=== PATIENT | male | born 1980 | race Caucasian/White ===

== ENCOUNTER 2024-09-30 09:27 | Emergency (ER) | payer OTHER, SELFPAY ==
[2024-09-30 09:47] VITALS: BP 133/84; PULSE 94; RESP 19; TEMP 36.8; O2SAT 96; BMI 27.0
--- NOTE | 2024-09-30 09:55 | PC.NURSE ---
PT COMING IN FROM THE ED LOBBY WITH C/O N/V & EPIGASTRIC PAIN X1 DAY; PER PT, I'VE BEEN VOMITING SINCE SUNDAY; IT STARTED WHEN I STARTED TAKING OZEMPIC FOR MY DIABETES AND THEY INCREASED MY DOSE; I HAVEN'T BEEN ABLE TO KEEP ANYTHING DOWN SINCE YESTERDAY. PT REPORTS HAVING HX OF DM, HYPERTENSION, KIDNEY STONES, AND CARDIAC DYSRHYTMIAS (PT UNABLE TO STATE WHAT). PT CONNECTED TO MONITORS AT THIS TIME.
[2024-09-30 09:57] VITALS: BP 130/89; PULSE 96; RESP 18; TEMP 36.8; O2SAT 99
[2024-09-30] MEDS: ONDANSETRON INJ 2 MG/ML INJ 2 ML 4 MG IV (10:32)
[2024-09-30] MEDS: SODIUM CHLORIDE 0.9% 1000 ML 1,000 ML 999 ML IV (11:01)
[2024-09-30] MEDS: LIDOCAINE VISCOUS 2% 15 ML UDC PO (11:09)
[2024-09-30] MEDS: MG HYD/AL HYD/SIME (Maalox Reg) SUSP 30 ML UDC PO (11:09)
[2024-09-30] MEDS: FAMOTIDINE INJ 10 MG/ML VIAL 2 ML 40 MG IVP (11:10)
--- NOTE | 2024-09-30 11:17 | EDNOTE_ITS ---
ED General RME/HPI General Chief complaint: Nausea/Vomiting/Diarrhea Stated complaint: Vomiting since Sunday Time Seen by Provider: 09/30/24 10:41 Arrival date/time: 09/30/24 09:27 RME / HPI RME / HPI narrative: 44-year-old male with a history of [id number] diabetes on Ozempic who presents with worsening of his chronic morning nausea since starting Ozempic. He notes typically he will have 1 or 2 emesis episodes in the morning once or twice a week with Ozempic, however since yesterday he has had nonstop emesis, increasing acid taste in the back of his throat. He denies diarrhea constipation. He notes mild pain under his sternal area. He has been on Ozempic for over 4 months. Related Data Home Medications ?Medication ?Instructions ?Recorded ?Confirmed tamsulosin 0.4 mg capsule (Flomax) 0.4 mg PO QDAY PRN kidney stones 03/21/21 03/21/21 Previous Rx's ?Medication ?Instructions ?Recorded hydrocodone 5 mg-acetaminophen 325 1 tab PO Q6H PRN pain #10 tabs 03/21/21 mg tablet ondansetron 4 mg disintegrating 4 mg PO Q8H PRN nausea and 09/30/24 tablet vomiting #14 tabs pantoprazole 40 mg tablet,delayed 40 mg PO QDAY #14 tabs 09/30/24 release (Protonix) Allergies Allergy/AdvReac Type Severity Reaction Status Date / Time allopurinol Allergy Severe HIVES Verified 07/14/24 16:55 febuxostat Allergy Severe HIVES Verified 07/14/24 16:55 ketorolac Allergy Intermediate HIVES Verified 07/14/24 16:55 NSAIDS (Non-Steroidal AdvReac Intermediate BARRETTS Verified 07/14/24 16:55 Anti-Inflamma ESPOPHAGUS Review of Systems Review of Systems Systems Reviewed: All systems reviewed, normal except as documented ED Exam Narrative Physical exam: GENERAL APPEARANCE: AxOx4, generally well-appearing, no acute distress. HEENT: NC, AT. MMM. EOMI, clear conjunctiva, oropharynx clear. NECK: Supple without lymphadenopathy. No stiffness or restricted ROM. HEART: Normal rate and regular rhythm, normal S1/S1, no m/r/g LUNGS: CTAB, moving air well. No crackles or wheezes are heard. ABDOMEN: Soft, nontender, nondistended with good bowel sounds heard. BACK: No midline C/T/L spine pain or deformity, No CVAT, no obvious deformity. EXTREMITIES: Without cyanosis, clubbing or edema. MUSCULOSKELETAL: FROM of all major joints, no chest tenderness NEUROLOGICAL: Grossly nonfocal. Alert and oriented, moving all 4 extremities. CN not formally tested but appear grossly intact. Observed to ambulate with normal gait. Skin: Warm and dry without any rash. Course Quality Measures none Orders Category Date Time Status CBC Stat Lab 09/30/24 11:05 Completed CMP [Comprehensive Metabolic Panel] Stat Lab 09/30/24 11:05 Completed Lipase Stat Lab 09/30/24 11:05 Completed Famotidine Inj [Pepcid Inj] Med 09/30/24 10:50 Discontinued 40 mg IVP X1 ONE Lidocaine 2% Viscous [Xylocaine 2% Viscous] Med 09/30/24 10:50 Discontinued 15 ml PO X1 ONE Ondansetron Inj [Zofran Inj] Med 09/30/24 10:27 Discontinued 4 mg IV X1 ONE Sodium Chloride 0.9% 1000 ml [Ns] 1,000 ml Med 09/30/24 10:50 Discontinued IV 999 mls/hr Sodium Chloride 0.9% 1000 ml [Ns] 1,000 ml Med 09/30/24 11:00 Discontinued IV 999 mls/hr mg Hyd/Al Hyd/Chuck Susp [Maalox Susp] Med 09/30/24 10:50 Discontinued 30 ml PO X1 ONE Vital Signs Vital signs: Vital Signs Temperature 98.3 F 09/30/24 09:47 Pulse Rate 94 09/30/24 09:47 Respiratory Rate 19 09/30/24 09:47 Blood Pressure 133/84 H 09/30/24 09:47 Pulse Oximetry (%) 96 09/30/24 09:47 Oxygen Delivery Method Room Air 09/30/24 09:47 SpO2 96% on room air, patient is not hypoxic MDM Patient data External records reviewed:: [facility] previous records Clinical information provided by:: patient Social determinants that could affect healthcare access:: none Patient has the following chronic illnesses:: Zbw-tianzak-lnueyyxpp diabetes, GERD, Schafer's esophagus, ureterolithiasis How is presenting disease/condition affected by chronic disease/condition?: e xacerbated by Evaluation data The following diagnostics were reviewed and interpreted by me:: lab results Lab and/or radiology exams considered but not ordered:: None Interpretation Summary: As per narrative Medications Medications considered but not ordered:: None Medication administrations:: Medication Administration History Discontinued Medications Al Hydrox/Mg Hydrox/Simethicone (Mg Hyd/Al Hyd/Chuck (Maalox Reg) Susp 30 Ml Udc) 30 ml PO X1 ONE Stop: 09/30/24 10:51 Last Admin: 09/30/24 11:09 Dose: 30 ml Documented By: Famotidine (Famotidine Inj 10 Mg/Ml Vial 2 Ml) 40 mg IVP X1 ONE Stop: 09/30/24 10:51 Last Admin: 09/30/24 11:10 Dose: 40 mg Documented By: Sodium Chloride (Ns) 1,000 mls @ 999 mls/hr IV .Q1H1M ONE Stop: 09/30/24 12:00 Last Infusion: 09/30/24 12:41 Dose: Infused Documented By: Admin: 09/30/24 11:01 Dose: 999 mls/hr Documented By: Sodium Chloride (Ns) 1,000 mls @ 999 mls/hr IV .Q1H1M ONE Stop: 09/30/24 11:50 Last Admin: 09/30/24 11:04 Dose: Not Given Documented By: Non-Admin Reason: Duplicate Medication on eMAR Lidocaine HCl (Lidocaine Viscous 2% 15 Ml Udc) 15 ml PO X1 ONE Stop: 09/30/24 10:51 Last Admin: 09/30/24 11:09 Dose: 15 ml Documented By: Ondansetron HCl (Ondansetron Inj 2 Mg/Ml Inj 2 Ml) 4 mg IV X1 ONE; Protocol Stop: 09/30/24 10:28 Last Admin: 09/30/24 10:32 Dose: 4 mg Documented By: Above Consultations Consultation(s) initiated? (list below): No Diagnosis Differential Diagnosis ED Complaint MDM: Gastritis, peptic ulcer disease, gastroesophageal reflux, pancreatitis Most likely diagnosis given after review of the tests above:: See below Admission Indicated Admission indicated?: not indicated Explain why admission is indicated or not indicated:: As per narrative Admission Request Was there a request for admission?: No Disposition Plan Disposition Plan: Discharge Discharge Attestation Discharge Attestation: The patient and all family members were given an opportunity to ask questions and understood the discharge instructions. Discharge instructions specifically effects, indications for sooner follow up or return to the emergency department, and the expected course of current diagnosis. Patient condition: Stable Medical Decision Making MDM Narrative MDM Narrative: Mr. Cunningham is otherwise pleasant, well-appearing gentleman who has had increasing episodes of morning nausea and vomiting since starting Ozempic. On my exam he has not had any vomiting here in the emergency department he just seems relatively tired or fatigued, nontoxic-appearing. He was hydrated here in the emergency department and giving antiemetics with good effect. He is able to tolerate p.o. fluids well. laboratory testing shows no significant dehydration, electrolyte abnormalities, kidney dysfunction or pancreatitis. He feels he was able to success with Ozempic and both blood sugar control and weight loss. He is in the process of getting his Schafer's esophagus assess to see whether that this has anything to do with his current symptoms as well. He will continue his Ozempic until he has followed up with GI for his Schafer's esophagus. Differential Diagnosis Differential Diagnosis: Gastritis, peptic ulcer disease, gastroesophageal reflux, pancreatitis Lab Data 09/30/24 11:05 09/30/24 11:05 Labs: Lab Results 09/30/24 Range/Units 11:05 WBC 11.7 H (3.8-10.6) Thou/mm3 RBC 5.61 (4.50-5.90) Miln/mm3 Hgb 16.5 H (13.5-16.0) g/dL Hct 46.5 (41.0-53.0) % MCV 83 (80-100) fL MCH 29.4 (25.0-35.0) pg MCHC 35.5 (31.0-37.0) g/dl RDW Std Deviation 35.4 (35.1-43.9) fL Plt Count 398 (140-440) Thou/mm3 Neut % (Auto) 76 (37-80) % Lymph % (Auto) 16 (10-50) % Bowman % (Auto) 8 (0-12) % Eos % (Auto) 0 (0-10) % Baso % (Auto) 0 (0-2.5) % Neut # (Auto) 8.8 H (1.8-7.7) Thou/mm3 Lymph # (Auto) 1.8 (1.0-4.8) Thou/mm3 Bowman # (Auto) 1.0 H (0.0-0.8) Thou/mm3 Eos # (Auto) 0.0 (0.0-0.5) Thou/mm3 Baso # (Auto) 0.0 (0.0-0.2) Thou/mm3 Immature Gran # (Auto) 0.04 H (0.00-0.00) Thou/mm3 Absolute Nucleated RBC 0.00 (0.00-0.00) Thou/mm3 Immature Gran % 0 (0-0) % Nucleated RBC % 0 (0) /100 WBC Sodium 136 (136-145) mMol/L Potassium 3.4 (3.4-5.1) mMol/L Chloride 93 L (98-107) mMol/L Carbon Dioxide 30.3 (20.0-31.0) mMol/L Anion Gap 13 (7-16) BUN 21 (9-23) mg/dL Creatinine 1.2 (0.6-1.3) mg/dL Estim Creat Clear Calc 81.9 (>60) mL/min eGFR > 60 (60 - ) See Note BUN/Creatinine Ratio 18 (12-20) Ratio Glucose 263 H (74-106) mg/dL Calculated Osmolality 283 (275-295) Calcium 10.5 (8.3-10.6) mg/dL Corrected Calcium 10.5 H (8.5-10.1) mg/dL Total Bilirubin 1.5 H (0.3-1.2) mg/dL AST 14 (0-34) U/L ALT 18 (10-49) U/L Alkaline Phosphatase 68 (46-116) U/L Total Protein 8.1 (5.7-8.2) gm/dL Albumin 5.8 H (3.5-5.0) gm/dL Globulin 2.3 (2.3-3.5) gm/dL Albumin/Globulin Ratio 2.5 H (1.2-2.2) Lipase 31 (12-53) U/L Discharge Plan Plan Patient Disposition: HOME (Self Care) Prescriptions/Referrals Prescriptions/Med Rec: New ondansetron 4 mg tablet,disintegrating 4 mg PO Q8H PRN (Reason: nausea and vomiting) Qty: 14 0RF pantoprazole [Protonix] 40 mg tablet,delayed release (DR/EC) 40 mg PO QDAY Qty: 14 0RF No Action tamsulosin [Flomax] 0.4 mg Capsule 0.4 mg PO QDAY PRN (Reason: kidney stones) hydrocodone-acetaminophen 5-325 mg tablet 1 tab PO Q6H MDD 4 PRN (Reason: pain) Qty: 10 0RF Referrals: Susi Couch PA-C [Primary Care Provider] - In 1 week Problem List Clinical Impression: Gastritis, Nausea & vomiting Patient/Caregiver Discharge Instructions Education Materials: ED Diet for Vomiting or ..., ED PEPTIC ULCER vs GASTRITIS Additional Instructions: Follow-up with your primary care doctor for possible referral to the GI specialist for endoscopy/assessment of your previous history of Schafer's esophagus. You can return to the emergency department sooner symptoms worsen or if you notice any new, concerning issues. Print Language: Malagasy Stand Alone Forms: Alanna Award Info., Patient Portal Info Letter
[2024-09-30 11:25] LABS: Basophils % (Auto) 0 % (0-2.5); Eosinophils % (Auto) 0 % (0-10); Hematocrit 46.5 % (41.0-53.0); Hemoglobin 16.5 g/dL (13.5-16.0); Immature Granulocytes % (Auto) 0 % (0-0); Immature Granulocytes Auto 0.04 Thou/mm3 (0.00-0.00); Lymphocytes # (Auto) 1.8 Thou/mm3 (1.0-4.8); Lymphocytes % (Auto) 16 % (10-50); Mean Corpuscular HGB Conc 35.5 g/dl (31.0-37.0); Mean Corpuscular Hemoglobin 29.4 pg (25.0-35.0); Mean Corpuscular Volume 83 fL (80-100); Monocytes % (Auto) 8 % (0-12); Neutrophils # (Auto) 8.8 Thou/mm3 (1.8-7.7); Neutrophils % (Auto) 76 % (37-80); Nucleated Red Blood Cell % 0 /100 WBC (0); Platelet Count 398 Thou/mm3 (140-440); RDW Standard Deviation 35.4 fL (35.1-43.9); Red Blood Count 5.61 Miln/mm3 (4.50-5.90); White Blood Count 11.7 Thou/mm3 (3.8-10.6)
[2024-09-30 11:42] LABS: Alanine Aminotransferase 18 U/L (10-49); Albumin, Serum 5.8 gm/dL (3.5-5.0); Albumin/Globulin Ratio 2.5 (1.2-2.2); Alkaline Phosphatase 68 U/L (46-116); Anion Gap 13 (7-16); Aspartate Amino Transferase 14 U/L (0-34); BUN/Creatinine Ratio 18 Ratio (12-20); Bilirubin,Total 1.5 mg/dL (0.3-1.2); Blood Urea Nitrogen 21 mg/dL (9-23); Calcium 10.5 mg/dL (8.3-10.6); Calcium (Corrected) 10.5 mg/dL (8.5-10.1); Carbon Dioxide 30.3 mMol/L (20.0-31.0); Chloride 93 mMol/L (98-107); Creatinine (Component) 1.2 mg/dL (0.6-1.3); Estimated Creatinine Clearance 81.9 mL/min (>60); Globulin 2.3 gm/dL (2.3-3.5); Glucose 263 mg/dL (74-106); Lipase 31 U/L (12-53); Osmolality,Calculated 283 (275-295); Potassium 3.4 mMol/L (3.4-5.1); Sodium 136 mMol/L (136-145); Total Protein 8.1 gm/dL (5.7-8.2); eGFR > 60 See Note
[2024-09-30 12:00] VITALS: BP 125/67; PULSE 83; RESP 15; TEMP 36.9; O2SAT 97
[2024-09-30 13:17] VITALS: BP 153/92; PULSE 87; RESP 14; TEMP 37.2; O2SAT 98
== END 2024-09-30 13:28 | disposition home or self-care (01) ==
PROVIDERS: Emergency Provider Emergency Medicine; PCP Physician Assistant
DX: K29.70 Gastritis, unspecified, without bleeding (principal); E11.9 Type 2 diabetes mellitus without complications
CPT/HCPCS: 36415; 80053; 83690; 85025; 96361; 96374; 96375; 99284; J2405; J3490; J7030; A9270

== ENCOUNTER 2024-11-19 12:09 | Emergency (ER) | payer OTHER, SELFPAY ==
[2024-11-19 12:30] VITALS: BP 160/69; PULSE 80; RESP 18; TEMP 37.1; O2SAT 100; BMI 27.8
[2024-11-19 12:53] LABS: Basophils % (Auto) 0 % (0-2.5); Eosinophils % (Auto) 0 % (0-10); Hematocrit 42.7 % (41.0-53.0); Immature Granulocytes % (Auto) 0 % (0-0); Immature Granulocytes Auto 0.03 Thou/mm3 (0.00-0.00); Lymphocytes # (Auto) 1.5 Thou/mm3 (1.0-4.8); Lymphocytes % (Auto) 12 % (10-50); Mean Corpuscular HGB Conc 35.1 g/dl (31.0-37.0); Mean Corpuscular Volume 82 fL (80-100); Monocytes # (Auto) 0.4 Thou/mm3 (0.0-0.8); Monocytes % (Auto) 3 % (0-12); Neutrophils # (Auto) 10.5 Thou/mm3 (1.8-7.7); Neutrophils % (Auto) 84 % (37-80); Nucleated Red Blood Cell % 0 /100 WBC (0); Platelet Count 327 Thou/mm3 (140-440); RDW Standard Deviation 35.6 fL (35.1-43.9); Red Blood Count 5.18 Miln/mm3 (4.50-5.90); White Blood Count 12.4 Thou/mm3 (3.8-10.6)
[2024-11-19] MEDS: LORazepam 2 MG/ML VIAL 1 MG IM (12:54)
[2024-11-19] MEDS: METOCLOPRAMIDE INJ 5 MG/ML VIAL 2 ML 10 MG IM (12:54)
--- NOTE | 2024-11-19 13:23 | PD.EDRME ---
Rapid Medical Screening Exam RME Arrival date/time: 11/19/24 12:09 44-year-old male presents to the emergency department he was of nausea vomiting abdominal pain which he attributes to the Ozempic Chief Complaint: Nausea/Vomiting/Diarrhea Vital signs: Vital Signs Temperature 98.7 F 11/19/24 12:30 Pulse Rate 80 11/19/24 12:30 Respiratory Rate 18 11/19/24 12:30 Blood Pressure 160/69 H 11/19/24 12:30 Pulse Oximetry (%) 100 11/19/24 12:30 Oxygen Delivery Method Room Air 11/19/24 12:30
[2024-11-19 13:26] LABS: Alanine Aminotransferase 21 U/L (10-49); Albumin/Globulin Ratio 2.1 (1.2-2.2); Alkaline Phosphatase 61 U/L (46-116); Anion Gap 12 (7-16); Aspartate Amino Transferase 18 U/L (0-34); BUN/Creatinine Ratio 12 Ratio (12-20); Bilirubin,Total 1.3 mg/dL (0.3-1.2); Blood Urea Nitrogen 11 mg/dL (9-23); Carbon Dioxide 25.2 mMol/L (20.0-31.0); Chloride 102 mMol/L (98-107); Creatinine (Component) 0.9 mg/dL (0.6-1.3); Estimated Creatinine Clearance 118.2 mL/min (>60); Globulin 2.4 gm/dL (2.3-3.5); Glucose 209 mg/dL (74-106); Lipase 34 U/L (12-53); Osmolality,Calculated 282 (275-295); Sodium 139 mMol/L (136-145); Total Protein 7.4 gm/dL (5.7-8.2); eGFR > 60 See Note
[2024-11-19 15:04] VITALS: BP 157/72; PULSE 84; RESP 18; TEMP 37.1; O2SAT 98
[2024-11-19 15:24] LABS: Collection Type, Urine Clean Catch
[2024-11-19 15:41] LABS: Bilirubin,Urine Negative (Negative); Blood,Urine Negative (Negative); Clarity,Urine Clear (Clear/Hazy); Color,Urine Lt-Yellow (Lt Yel-Yel); Culture Indicated,Urine Not Indicated; Glucose, Urine 3+ (Negative); Ketones,Urine 1+ (Negative); Leukocyte Esterase,Urine Negative (Negative); Nitrite,Urine Negative (Negative); Protein,Urine Negative (Neg - Trace); RBC,Urine 2 /hpf (0-3); Specific Gravity,Urine 1.019 (1.001-1.035); Squamous Epithelial Cell,Urine 2 /hpf (0-5); Urobilinogen,Urine Negative mg/dL (0.0-1.0); WBC,Urine 1 /hpf (0-5)
[2024-11-19] MEDS: SODIUM CHLORIDE 0.9% 1000 ML 1,000 ML 999 ML IV (19:54)
--- NOTE | 2024-11-19 19:55 | PD.EDNV ---
Nausea/Vomit./Diarrhea-RME/HPI General Chief complaint: Nausea/Vomiting/Diarrhea Stated complaint: VOMITING X 48 HRS, WEAKNESS; TAKES OZEMPIC Time Seen by Provider: 11/19/24 20:02 Arrival date/time: 11/19/24 12:09 RME / HPI RME / HPI Narrative: 11/19/24 12:09 44-year-old male presents to the emergency department he was of nausea vomiting abdominal pain which he attributes to the Ozempic Dr. Haley?s Main ED Evaluation: 44yo male with a history of DM on ozempic 2 mg accompanied by his presents to the ED for a chief complaint of N/V x 2 days. Patient states he has not been able to hold anything down for the last 2 days. He reports associated sweating and shakiness. He states he took Zofran without any alleviation of symptoms, so he came in for evaluation. Patient states he had similar symptoms on 09/30/24 and was given a GI cocktail here which improved his symptoms. He denies any diarrhea, cough or any other associated symptoms. Patient states he has an appointment with his PCP on Sunday regarding possibly discontinuing his Ozempic. Related Data Home Medications ?Medication ?Instructions ?Recorded ?Confirmed tamsulosin 0.4 mg capsule (Flomax) 0.4 mg PO QDAY PRN kidney stones 03/21/21 03/21/21 Previous Rx's ?Medication ?Instructions ?Recorded hydrocodone 5 mg-acetaminophen 325 1 tab PO Q6H PRN pain #10 tabs 03/21/21 mg tablet ondansetron 4 mg disintegrating 4 mg PO Q8H PRN nausea and 09/30/24 tablet vomiting #14 tabs pantoprazole 40 mg tablet,delayed 40 mg PO QDAY #14 tabs 09/30/24 release (Protonix) ondansetron 4 mg disintegrating 4 mg PO Q6H PRN nausea and 11/19/24 tablet vomiting #20 tabs pantoprazole 40 mg tablet,delayed 40 mg PO QDAY 30 days #30 tabs 11/19/24 release (Protonix) Allergies Allergy/AdvReac Type Severity Reaction Status Date / Time allopurinol Allergy Severe HIVES Verified 11/19/24 12:10 febuxostat Allergy Severe HIVES Verified 11/19/24 12:10 ketorolac Allergy Intermediate HIVES Verified 11/19/24 12:10 NSAIDS (Non-Steroidal AdvReac Intermediate BARRETTS Verified 11/19/24 12:10 Anti-Inflamma ESPOPHAGUS Review of Systems Review of Systems Systems Reviewed: All systems reviewed, normal except as documented Past Medical History Past Medical History CARDIAC: Positive Cardiac Disorders, Cardiac Arrhythmia, Hypercholesterolemia and Hypertension; Negative Congestive Heart Failure RESPIRATORY: Negative Chronic Obstructive Pulmonary Disease (COPD) GASTROINTESTINAL: Positive Schafer's Esophagus and Hiatal Hernia GENITOURINARY: Positive Genitourinary Disorders and Kidney Stones; Negative Renal Disease MUSCULOSKELETAL: Positive Musculoskeletal Disorders and Fractures ENDOCRINE: Positive Endocrine Disorders and Diabetes Mellitus Type 2; Negative Diabetes Mellitus Type 1 Family History FAMILY HISTORY: Positive Family Cardiac Disorders and Family Cancer Social History SMOKING STATUS: Never smoker SUBSTANCE USE: marijuana ED Exam Narrative Physical exam: GENERAL APPEARANCE: alert and oriented x 4, well-developed, well-nourished, no acute distress VITALS: All vitals were reviewed and the pulse ox is 98% on room air, which is normal according to my interpretation. HEENT: Normocephalic, atraumatic; pupils equal, round, reactive to light; EOMI; mucous membranes pink, moist; oropharynx clear NECK: Supple LUNGS: CTABL; no wheezes, no rales, no rhonchi HEART: Regular rate, regular rhythm; normal S1, S2; no murmurs ABDOMEN: non distended; normal BS; soft, no tenderness, no guarding, no rebound; no masses, no organomegaly, no hernia BACK: no CVA tenderness EXTREMITIES: atraumatic; no edema NEUROLOGIC: awake; alert and oriented x4; cranial nerves II-XII grossly intact; no focal sensory or motor deficits PSYCHIATRIC: appropriate mood and affect SKIN: warm, dry, normal color; no rashes Course Quality Measures none Orders Category Date Time Status Insert IV NOW Care 11/19/24 12:39 Completed CBC Stat Lab 11/19/24 12:42 Completed Comprehensive Metabolic Panel Stat Lab 11/19/24 12:42 Completed Lipase Stat Lab 11/19/24 12:42 Completed UA, C/S IF [Urinalysis, C/S if Indicated] Stat Lab 11/19/24 15:15 Completed LORazepam [Ativan Inj] Med 11/19/24 12:38 Discontinued 1 mg IM X1 ONE Metoclopramide Inj [Reglan Inj] Med 11/19/24 12:38 Discontinued 10 mg IM X1 ONE Pantoprazole Inj [Protonix Inj] Med 11/19/24 20:19 Discontinued 40 mg IVP X1 ONE Sodium Chloride 0.9% 1000 ml [Ns] 1,000 ml Med 11/19/24 12:39 Discontinued IV 999 mls/hr mg Hyd/Al Hyd/Chuck Susp [Maalox Susp] Med 11/19/24 20:19 Discontinued 30 ml PO X1 ONE Reevaluation(s) Reevaluation #1: Patient feels significantly better after receiving IVF and GI cocktail. He is stable to be discharged home. Time: 21:13 Vital Signs Vital signs: Vital Signs Temperature 98.7 F 11/19/24 12:30 Pulse Rate 80 11/19/24 12:30 Respiratory Rate 18 11/19/24 12:30 Blood Pressure 160/69 H 11/19/24 12:30 Pulse Oximetry (%) 100 11/19/24 12:30 Oxygen Delivery Method Room Air 11/19/24 12:30 Nausea/Vomiting/Diarrhea MDM Narrative MDM Narrative:: Scribe Attestation: 11/19/24 - Lakeshia Greenfield am scribing for and in the presence of Dr. Haley. Patient data External records reviewed:: [facility] previous records (Per chart review, patient was seen here on 09/30/24 for gastritis.) Clinical information provided by:: patient Social determinants that could affect healthcare access:: none Patient has the following chronic illnesses:: DM, HTN, HLD How is presenting disease/condition affected by chronic disease/condition?: exacerbated by Evaluation data The following diagnostics were reviewed and interpreted by me:: lab results Lab and/or radiology exams considered but not ordered:: none Interpretation Summary: WBC count is 12.4, Glucose is 209, Lipase is normal, according to my interpretation. Medications / Prescriptions Medications / Prescriptions considered but not ordered:: none Medication administrations:: Medication Administration History Discontinued Medications Al Hydrox/Mg Hydrox/Simethicone (Mg Hyd/Al Hyd/Chuck (Maalox Reg) Susp 30 Ml Udc) 30 ml PO X1 ONE Stop: 11/19/24 20:20 Last Admin: 11/19/24 20:41 Dose: 30 ml Documented By: PRICILLA Sodium Chloride (Ns) 1,000 mls @ 999 mls/hr IV .Q1H1M ONE Stop: 11/19/24 13:39 Last Admin: 11/19/24 19:54 Dose: 999 mls/hr Documented By: PRICILLA Lorazepam (Lorazepam 2 Mg/Ml Vial) 1 mg IM X1 ONE Stop: 11/19/24 12:39 Last Admin: 11/19/24 12:54 Dose: 1 mg Documented By: TESSIE Metoclopramide HCl (Metoclopramide Inj 5 Mg/Ml Vial 2 Ml) 10 mg IM X1 ONE; Protocol Stop: 11/19/24 12:39 Last Admin: 11/19/24 12:54 Dose: 10 mg Documented By: TESSIE Pantoprazole Sodium (Pantoprazole Inj 40 Mg Vial) 40 mg IVP X1 ONE Stop: 11/19/24 20:20 Last Admin: 11/19/24 20:43 Dose: 40 mg Documented By: PRICILLA see above Consultations Consultation(s) initiated? (list below): No Diagnosis Nausea Differential Diagnosis: other (viral gastroenteritis, gastroparesis, gastritis, choledocolithiasis, cholelithiasis) Most likely diagnosis given after review of the tests above:: see below Admission Indicated Admission indicated?: not indicated Explain why admission is indicated or not indicated:: No criteria for admission. Admission Request Was there a request for admission?: No Disposition Plan Disposition Plan: Discharge Discharge Attestation Discharge Attestation: The patient and all family members were given an opportunity to ask questions and understood the discharge instructions. Discharge instructions specifically effects, indications for sooner follow up or return to the emergency department, and the expected course of current diagnosis. Patient condition: Stable Discharge Plan Plan Patient Disposition: HOME (Self Care) Disposition Comment: Stable for discharge Patient condition on transfer: Stable Prescriptions/Referrals Prescriptions/Med Rec: New pantoprazole [Protonix] 40 mg tablet,delayed release (DR/EC) 40 mg PO QDAY 30 Days Qty: 30 0RF ondansetron 4 mg tablet,disintegrating 4 mg PO Q6H PRN (Reason: nausea and vomiting) Qty: 20 0RF No Action tamsulosin [Flomax] 0.4 mg Capsule 0.4 mg PO QDAY PRN (Reason: kidney stones) hydrocodone-acetaminophen 5-325 mg tablet 1 tab PO Q6H MDD 4 PRN (Reason: pain) Qty: 10 0RF ondansetron 4 mg tablet,disintegrating 4 mg PO Q8H PRN (Reason: nausea and vomiting) Qty: 14 0RF pantoprazole [Protonix] 40 mg tablet,delayed release (DR/EC) 40 mg PO QDAY Qty: 14 0RF Referrals: [facility] [Outside] - In 1 week No Primary/Family,Physician [Primary Care Provider] - In 1 week Problem List Clinical Impression: Vomiting Patient/Caregiver Discharge Instructions Discharge Activity: activity as tolerated Education Materials: ED Diet for Vomiting or ..., ED Vomiting (Adult) Additional Instructions: Please return to the emergency department if you have any worsening or any further medical problems. Otherwise you should follow-up with your primary care doctor within the next several days. Print Language: Bulgarian Stand Alone Forms: Alanna Award Info., Patient Portal Info Letter
[2024-11-19] MEDS: MG HYD/AL HYD/SIME (Maalox Reg) SUSP 30 ML UDC PO (20:41)
[2024-11-19] MEDS: PANTOPRAZOLE INJ 40 MG VIAL IVP (20:43)
[2024-11-19 21:24] VITALS: BP 135/67; PULSE 78; RESP 18; TEMP 36.6; O2SAT 99
== END 2024-11-19 21:26 | disposition home or self-care (01) ==
PROVIDERS: Nurse Practitioner Primary Care; Emergency Provider Emergency Medicine
DX: R11.2 Nausea with vomiting, unspecified (principal); E11.9 Type 2 diabetes mellitus without complications; E78.00 Pure hypercholesterolemia, unspecified; I10 Essential (primary) hypertension
CPT/HCPCS: 36415; 80053; 81001; 83690; 85025; 96372; 96374; 99284; J2060; J2470; J2765; J7030; A9270